=== PATIENT | male | born 1960 | race Caucasian/White ===

== ENCOUNTER → 2017-12-20 | Outpatient (CLI) | payer OTHER ==
[2017-12-20 15:05] LABS: ANION GAP 8 MEQ/L (8-16); BLOOD UREA NITROGEN 19 MG/DL (7-18); CALCIUM LEVEL 9.4 MG/DL (8.5-10.1); CARBON DIOXIDE LEVEL 32 MEQ/L (21-32); CHLORIDE LEVEL 96 MEQ/L (98-107); CREATININE FOR GFR 1.03 MG/DL (0.70-1.30); GLOMERULAR FILTRATION RATE > 60.0 (>56); GLUCOSE, FASTING 338 MG/DL (70-100); POTASSIUM SERUM 3.7 MEQ/L (3.5-5.1); SODIUM LEVEL 136 MEQ/L (136-145)
== END ==
LOC: M LAB 13:52
DX: Z01.818 Encounter for other preprocedural examination (principal)
CPT/HCPCS: 93005

== ENCOUNTER → 2017-12-25 | Day surgery (SDC) | payer OTHER ==
[~2017-12-25] MED LIST: HumaLOG INSULIN (NovoLOG) PER UNIT As Ordered; KETOROLAC 30 MG/ML VIAL (J1885) As Ordered; KETOROLAC 60 MG/2 ML VIAL (J1885) As Ordered; LIDOCAINE 2% INJ 100 MG/5 ML SDV (FOR ANES.) As Ordered; LR 1,000 ML IV; MEPERIDINE INJ 25 MG/ML VIAL (J2175) IV; METOCLOPRAMIDE INJ 10MG/2ML VIAL (J2765) As Ordered; METOCLOPRAMIDE INJ 10MG/2ML VIAL (J2765) IV; MIDAZOLAM INJ 2 MG/2 ML VIAL (J2250) As Ordered; NORCO, ANEXSIA 5/325MG TABLET (HYDROcodone/ACETAMINOPHEN) PO; ONDANSETRON 4MG/2ML VIAL (J2405) As Ordered; ONDANSETRON 4MG/2ML VIAL (J2405) IV; PROPOFOL 200 MG/20 ML VIAL As Ordered; ROCURONIUM BROMIDE 50 MG/5 ML VIAL As Ordered; SUCCINYLCHOLINE 100 MG/5 ML SYRINGE (J0330) As Ordered; fentaNYL 100 MCG/2 ML INJECTION (J3010) As Ordered; fentaNYL 100 MCG/2 ML INJECTION (J3010) IV; hydrALAZINE INJ 20 MG/ML VIAL As Ordered
[2017-12-25] MEDS: LR 1,000 ML IV (07:36)
[2017-12-25 07:59] LABS: BEDSIDE GLUCOSE 261 MG/DL (70-105)
[2017-12-25] MEDS: BUPIVACAINE HCL 0.25% 30 ML VIAL As Ordered (09:40)
[2017-12-25] MEDS: LIDOCAINE W/EPINEPHRINE 1% 20ML VIAL As Ordered (09:40)
[2017-12-25] MEDS: HumaLOG INSULIN (NovoLOG) PER UNIT SC (10:29)
[2017-12-25 10:33] LABS: BEDSIDE GLUCOSE 272 MG/DL (70-105)
[2017-12-25] MEDS: ONDANSETRON 4MG/2ML VIAL (J2405) IV (10:47)
[2017-12-25] MEDS: KETOROLAC 30 MG/ML VIAL (J1885) IV (10:48)
[2017-12-25] MEDS: PERCOCET 5MG/325MG TAB PO (10:50)
== END | disposition home or self-care (01) ==
LOC: M SDC 06:50
DX: K40.90 Unilateral inguinal hernia, without obstruction or gangrene, not specified as recurrent (principal); I10 Essential (primary) hypertension; E78.5 Hyperlipidemia, unspecified; N40.0 Benign prostatic hyperplasia without lower urinary tract symptoms; Z79.82 Long term (current) use of aspirin; Z79.899 Other long term (current) drug therapy; E11.9 Type 2 diabetes mellitus without complications
CPT/HCPCS: 49650

== ENCOUNTER → 2018-08-27 | Outpatient (CLI) | payer OTHER ==
[2018-08-27 15:10] LABS: BASO % 0.3 % (0.0-1.0); EOS # 0.2 10^3/uL (0.0-0.50); EOS % 2.6 % (0.0-3.0); HEMATOCRIT 49.2 % (42.0-52.0); HEMOGLOBIN 16.7 g/dl (13.5-17.5); IMMATURE GRANULOCYTE % 0.3 % (0-3.0); LYMPH # 1.8 10^3/uL (1.5-4.5); LYMPH % 28.4 % (24.0-44.0); MEAN CORPUSCULAR HEMOGLOBIN 29.6 pg (27.0-33.0); MEAN CORPUSCULAR HGB CONC 33.9 g/dl (32.0-36.5); MEAN CORPUSCULAR VOLUME 87.1 fl (80.0-96.0); MONO # 0.5 10^3/uL (0.0-0.8); MONO % 7.5 % (0.0-5.0); NEUTROPHILS # 3.8 10^3/uL (1.8-7.7); NEUTROPHILS % 60.9 % (36.0-66.0); PLATELET COUNT, AUTOMATED 223 10^3/uL (150-450); RED BLOOD COUNT 5.65 10^6/uL (4.30-6.10); RED CELL DISTRIBUTION WIDTH 12.4 % (11.5-14.5); WHITE BLOOD COUNT 6.3 10^3/uL (4.0-10.0)
[2018-08-27 15:20] LABS: INR 1.01; PROTHROMBIN TIME 13.4 SECONDS (12.1-14.4)
[2018-08-27 15:21] LABS: PARTIAL THROMBOPLASTIN TIME 29.4 SECONDS (25.4-37.6)
[2018-08-27 15:23] LABS: D-DIMER QUANT 272.2 ng/ml (<500)
[2018-08-27 16:00] LABS: ALBUMIN/GLOBULIN RATIO 1.25 (1.00-1.93); ALKALINE PHOSPHATASE 63 U/L (45-117); ALT/SGPT 36 U/L (12-78); ANION GAP 9 MEQ/L (8-16); AST/SGOT 20 U/L (7-37); BILIRUBIN,TOTAL 0.2 MG/DL (0.2-1.0); BLOOD UREA NITROGEN 25 MG/DL (7-18); CALCIUM LEVEL 9.7 MG/DL (8.5-10.1); CARBON DIOXIDE LEVEL 30 MEQ/L (21-32); CHLORIDE LEVEL 103 MEQ/L (98-107); CPK CREATINE PHOSPHOKINASE 138 U/L (39-308); FREE T4 0.98 NG/DL (0.76-1.46); GLOMERULAR FILTRATION RATE > 60.0 (>56); GLUCOSE, FASTING 107 MG/DL (70-100); MB/CK RELATIVE INDEX 1.23 (< OR =4); POTASSIUM SERUM 4.6 MEQ/L (3.5-5.1); SODIUM LEVEL 142 MEQ/L (136-145); THYROID STIMULATING HORMONE 0.637 uIU/ML (0.358-3.740); TOTAL PROTEIN 7.2 GM/DL (6.4-8.2); TROPONIN I < 0.02 NG/ML (< 0.10)
== END ==
LOC: M WUC 14:21
DX: R07.9 Chest pain, unspecified (principal)
CPT/HCPCS: 82550

== ENCOUNTER 2019-07-05 13:31 | Emergency (ER) | payer OTHER ==
[~2019-07-05] VITALS: Ht 182.9 cm; Wt 105.5 kg
[~2019-07-05 13:31] MED LIST changes: +ASPI81TA85 PO; +ATEN50TA9 PO; +COLE1TAB PO; +FLOM0.4C39 PO; -HumaLOG INSULIN (NovoLOG) PER UNIT As Ordered; -KETOROLAC 30 MG/ML VIAL (J1885) As Ordered; -KETOROLAC 60 MG/2 ML VIAL (J1885) As Ordered; -LIDOCAINE 2% INJ 100 MG/5 ML SDV (FOR ANES.) As Ordered; -LR 1,000 ML IV; -MEPERIDINE INJ 25 MG/ML VIAL (J2175) IV; -METOCLOPRAMIDE INJ 10MG/2ML VIAL (J2765) As Ordered; -METOCLOPRAMIDE INJ 10MG/2ML VIAL (J2765) IV; -MIDAZOLAM INJ 2 MG/2 ML VIAL (J2250) As Ordered; +MULTCAP12 PO; -NORCO, ANEXSIA 5/325MG TABLET (HYDROcodone/ACETAMINOPHEN) PO; -ONDANSETRON 4MG/2ML VIAL (J2405) As Ordered; -ONDANSETRON 4MG/2ML VIAL (J2405) IV; -PROPOFOL 200 MG/20 ML VIAL As Ordered; +QUIN1TAB3 PO; -ROCURONIUM BROMIDE 50 MG/5 ML VIAL As Ordered; -SUCCINYLCHOLINE 100 MG/5 ML SYRINGE (J0330) As Ordered; +XIGD1TAB3 PO; -fentaNYL 100 MCG/2 ML INJECTION (J3010) As Ordered; -fentaNYL 100 MCG/2 ML INJECTION (J3010) IV; -hydrALAZINE INJ 20 MG/ML VIAL As Ordered
[2019-07-05] MEDS ORDERED: GLIP10TA18 (13:46)
[2019-07-05 14:27] LABS: BASO % 0.3 % (0.0-1.0); EOS # 0.1 10^3/uL (0.0-0.50); EOS % 1.6 % (0.0-3.0); HEMOGLOBIN 15.6 g/dl (13.5-17.5); LYMPH # 1.4 10^3/uL (1.5-4.5); LYMPH % 22.4 % (24.0-44.0); MEAN CORPUSCULAR HEMOGLOBIN 30.5 pg (27.0-33.0); MEAN CORPUSCULAR HGB CONC 33.9 g/dl (32.0-36.5); MONO # 0.5 10^3/uL (0.0-0.8); MONO % 8.2 % (0.0-5.0); NEUTROPHILS # 4.3 10^3/uL (1.8-7.7); NEUTROPHILS % 67.3 % (36.0-66.0); PLATELET COUNT, AUTOMATED 226 10^3/uL (150-450); RED BLOOD COUNT 5.11 10^6/uL (4.30-6.10); WHITE BLOOD COUNT 6.3 10^3/uL (4.0-10.0)
[2019-07-05] MEDS ORDERED: ASPIRIN 81 MG CHEW TABLET PO ONE (14:30)
[2019-07-05 14:39] LABS: INR 0.95; PROTHROMBIN TIME 12.4 SECONDS (11.8-14.0)
[2019-07-05 14:40] LABS: PARTIAL THROMBOPLASTIN TIME 28.6 SECONDS (25.0-38.4)
--- NOTE | 2019-07-05 14:44 | REP ---
Portable chest, 02:24 p.m., single AP view with the patient sitting: Comparison is the PA and lateral chest of 08/27/2018. The lung de [place] are clear. The cardiac size is normal. The kal, mediastinum, and skeletal structures are unremarkable. Impression: Negative portable chest. There is no interval change. Electronically Signed by Sampson Bates MD 07/05/2019 02:35 P
[2019-07-05 14:45] LABS: ALBUMIN 3.6 GM/DL (3.2-5.2); ALT/SGPT 32 U/L (12-78); BILIRUBIN,DIRECT < 0.1 MG/DL (0.0-0.2); BILIRUBIN,TOTAL 0.4 MG/DL (0.2-1.0); BLOOD UREA NITROGEN 16 MG/DL (7-18); CALCIUM LEVEL 9.2 MG/DL (8.5-10.1); CARBON DIOXIDE LEVEL 29 MEQ/L (21-32); CHLORIDE LEVEL 103 MEQ/L (98-107); CK-MB VALUE MASS 2.8 NG/ML (<3.6); CPK CREATINE PHOSPHOKINASE 161 U/L (39-308); CREATININE FOR GFR 0.84 MG/DL (0.70-1.30); GLOMERULAR FILTRATION RATE > 60.0 (>56); GLUCOSE, FASTING 160 MG/DL (70-100); LIPASE 124 U/L (73-393); MB/CK RELATIVE INDEX 1.73 (< OR =4); POTASSIUM SERUM 4.1 MEQ/L (3.5-5.1); SODIUM LEVEL 139 MEQ/L (136-145); TOTAL PROTEIN 6.8 GM/DL (6.4-8.2); TROPONIN I 0.26 NG/ML (< 0.10)
[2019-07-05] MEDS ORDERED: HEPARIN DRIP 25,000 UNITS in APPROPRIATE DILUENT 1 EA IV SCH (14:48)
[2019-07-05] MEDS ORDERED: HEPARIN SOD (PORCINE) 5000 UNITS/ML VIAL IV ONE (15:00)
[2019-07-05 17:13] VITALS: BP 140/76
--- NOTE | 2019-07-06 07:13 | ECGEPIP ---
[facility] - ED Test Date: 2019-07-05 Pat Name: HILL NG Department: Room: - Gender: Male [employer]iler [employer]er: : 1960 Requested By: RANI Lindsey Order Number: [id number] Reading MD: Betty Patricia Measurements Intervals [place] Rate: 67 P: 29 RI: 178 QRS: -21 QRSD: 103 T: 45 QT: 380 QTc: 401 Interpretive Statements SINUS RHYTHM BORDERLINE LEFT AXIS DEVIATION SIMILAR 12/20/17 Electronically Signed on 07-06-2019 7:13:36 EDT by Betty Patricia
== END 2019-07-05 17:29 | disposition short-term general hospital (02) ==
LOC: M ED 13:31
DX: I20.0 Unstable angina (principal); R06.02 Shortness of breath; I10 Essential (primary) hypertension; E11.9 Type 2 diabetes mellitus without complications; E78.5 Hyperlipidemia, unspecified; Z79.899 Other long term (current) drug therapy; Z79.84 Long term (current) use of oral hypoglycemic drugs; Z79.82 Long term (current) use of aspirin

== ENCOUNTER → 2022-04-17 | Outpatient (CLI) | payer OTHER ==
[~2022-04-17] MED LIST changes: +AMLO25TA PO; +ASPI81CH33 PO; -ASPI81TA85 PO; +ASPI81TA86 PO; +ATOR80TA59 PO; +GLIP10TA18; +METO25TA4 PO; +MULTI FOR HIM PO
== END ==
LOC: M LABSMTC 10:44
PROVIDERS: ATTEND Anesthesiology
DX: Z01.818 Encounter for other preprocedural examination (principal); Z11.52 Encounter for screening for COVID-19

== ENCOUNTER 2022-04-21 06:34 | Day surgery (SDC) | payer OTHER ==
[~2022-04-21] VITALS: Ht 182.9 cm; Wt 104.3 kg
[~2022-04-21 06:34] MED LIST changes: +NS 1,000 ML IV ONE
[2022-04-21] MEDS ORDERED: propofoL 500 MG/50 ML VIAL As Ordered ONE (06:53)
[2022-04-21 08:30] VITALS: BP 137/77
== END 2022-04-21 08:52 | disposition home or self-care (01) ==
LOC: M OPP 06:34
PROVIDERS: ATTEND Internal Medicine Gastroenterology
DX: Z86.010 Personal history of colon polyps (principal); K63.5 Polyp of colon; K57.30 Diverticulosis of large intestine without perforation or abscess without bleeding; K64.8 Other hemorrhoids; Z79.02 Long term (current) use of antithrombotics/antiplatelets; Z79.2 Long term (current) use of antibiotics; Z79.84 Long term (current) use of oral hypoglycemic drugs; Z79.899 Other long term (current) drug therapy; Z95.5 Presence of coronary angioplasty implant and graft; Z80.51 Family history of malignant neoplasm of kidney